=== PATIENT | female | born 1940 | race Caucasian/White ===

== ENCOUNTER 2016-10-25 09:18 | Emergency (ER) | payer MEDICARE, OTHER ==
[~2016-10-25] VITALS: Ht 162.6 cm; Wt 59.0 kg
[2016-10-25] MEDS ORDERED: SODIUM CHLORIDE FLUSH 10ML SYR IVF ONE (10:00)
[2016-10-25] MEDS ORDERED: PROPOFOL 10 MG/ML, 20ML IVPush ONE (10:00)
[2016-10-25] MEDS ORDERED: DILTIAZEM 5 MG/ML, 5ML IVPush ONE (10:00)
[2016-10-25] MEDS ORDERED: DILTIAZEM 5 MG/ML, 5ML ONE (10:02)
[2016-10-25] MEDS ORDERED: ASPI-496 PO (10:05)
[2016-10-25] MEDS ORDERED: RIVA20TA PO (10:05)
[2016-10-25 10:19] LABS: HEMOGLOBIN 15.9 g/dL (11.7-16.4)
[2016-10-25] MEDS ORDERED: PROPOFOL 10 MG/ML, 20ML ONE (10:22)
[2016-10-25 11:31] LABS: BLOOD UREA NITROGEN 20 mg/dL (7-18)
[2016-10-25 11:37] LABS: IS PT STATUS REG ER OR PRE ER? YES
[2016-10-25] MEDS ORDERED: APIXABAN 5 MG TABLET PO ONE (13:00)
[2016-10-25 13:47] VITALS: BP 93/60
== END 2016-10-25 13:50 | disposition home or self-care (01) ==
LOC: ED 13:29
DX: I48.0 Paroxysmal atrial fibrillation (principal)
CPT/HCPCS: 36415; 71010; 80048; 82040; 83735; 84443; 84484; 85025; 85610; 92960; 93005; 96374

== ENCOUNTER 2017-03-13 16:02 | Emergency (ER) | payer MEDICARE, OTHER ==
[~2017-03-13] VITALS: Ht 162.6 cm; Wt 59.0 kg
[~2017-03-13 16:02] MED LIST: ASPI-496 PO; RIVA20TA PO
[2017-03-13 17:01] LABS: HEMATOCRIT 46.3 % (34.6-47.8); HEMOGLOBIN 15.4 g/dL (11.7-16.4); WHITE BLOOD COUNT 7.9 x10^3/uL (3.4-10)
[2017-03-13 17:11] LABS: BLOOD UREA NITROGEN 21 mg/dL (7-18)
[2017-03-13 17:21] LABS: IS PT STATUS REG ER OR PRE ER? YES
[2017-03-13] MEDS ORDERED: PROPOFOL 10 MG/ML, 20ML ONE (17:36)
[2017-03-13 18:37] VITALS: BP 120/70
== END 2017-03-13 19:09 | disposition home or self-care (01) ==
LOC: ED 18:22
DX: I48.0 Paroxysmal atrial fibrillation (principal); Z79.01 Long term (current) use of anticoagulants
CPT/HCPCS: 36415; 71010; 80048; 82040; 83735; 83880; 84439; 84443; 84484; 85025; 92960; 93005; 99152; 99153

== ENCOUNTER 2018-08-11 14:40 | Emergency (ER) | payer MEDICARE, OTHER ==
[~2018-08-11] VITALS: Ht 162.6 cm; Wt 59.0 kg
--- NOTE | 2018-08-11 15:07 | NUR ---
STEM ROLLER: TO ROOM FROM TRIAGE.
--- NOTE | 2018-08-11 15:18 | NUR ---
pt requests to hold PIV insertion (per ERP order) until seen by ERP.
--- NOTE | 2018-08-11 15:18 | NUR ---
ERP at BS
[2018-08-11] MEDS ORDERED: DILTIAZEM 5 MG/ML, 5ML ONE (15:25)
[2018-08-11] MEDS ORDERED: SODIUM CHLORIDE FLUSH 10ML SYR IVF ONE (15:30)
[2018-08-11] MEDS ORDERED: DILTIAZEM 5 MG/ML, 5ML IVPush ONE (15:30)
[2018-08-11] MEDS ORDERED: PLEASE ENTER HEIGHT AND WEIGHT MC SCH (15:30)
[2018-08-11 15:39] LABS: BASOPHILS # (AUTO) 0.02 x10^3/uL (0-0.1); BASOPHILS % (AUTO) 0 % (0-1); EOSINOPHILS # (AUTO) 0.04 x10^3/uL (0-0.4); EOSINOPHILS % (AUTO) 1 % (1-7); LYMPHOCYTES # (AUTO) 3.15 x10^3/uL (1-3.4); LYMPHOCYTES % (AUTO) 49 % (22-44); MD NO; MEAN CORPUSCULAR HEMOGLOBIN 31.9 pg (27.0-34.8); MEAN CORPUSCULAR HGB CONC 33.8 g/dL (32.4-35.8); MEAN CORPUSCULAR VOLUME 94.4 fL (80-100); MEAN PLATELET VOLUME 8.4 fL (7.4-10.4); MONOCYTES % (AUTO) 8 % (2-9); NEUTROPHILS # (AUTO) 2.75 x10^3/uL (1.8-6.8); NEUTROPHILS % (AUTO) 43 % (42-75); PLATELET COUNT 256 x10^3/uL (130-400); RED BLOOD COUNT 5.07 x10^6/uL (3.82-5.3); RED CELL DISTRIBUTION WIDTH 12.3 % (9.6-15.2)
[2018-08-11 15:49] LABS: ALBUMIN 4.2 g/dL (3.4-5.0); ANION GAP 9 mmol/L (5-15); CALCIUM 9.5 mg/dL (8.5-10.1); CHLORIDE 107 mmol/L (98-107)
[2018-08-11 15:55] LABS: ALANINE AMINOTRANSFERASE 21 U/L (12-78); ALKALINE PHOSPHATASE 88 U/L (45-117); BILIRUBIN,TOTAL 2.1 mg/dL (0.2-1.0); CREATININE 0.89 mg/dL (0.55-1.02); TOTAL PROTEIN 7.8 g/dL (6.4-8.2); TROPONIN I < 0.015 ng/mL (0.000-0.045)
--- NOTE | 2018-08-11 16:10 | NUR ---
pt upright on gurney awake & comfortable, responds approp to staff, NAD, comfort measures provided, call light within reach.
[2018-08-11 17:10] VITALS: BP 94/67
--- NOTE | 2018-08-11 17:11 | NUR ---
Patient given discharge instructions and they have confirmed that they understand the instructions. Patient ambulatory with steady gait.
== END 2018-08-11 17:11 | disposition home or self-care (01) ==
LOC: ED 17:05
DX: I48.2 Chronic atrial fibrillation (principal)
CPT/HCPCS: 36415; 71045; 80053; 84484; 85025; 93005; 96374; 99284